=== PATIENT | male | born 1985 | race Caucasian/White ===

== ENCOUNTER → 2017-06-12 | Emergency (ER) | payer OTHER ==
[~2017-06-12] VITALS: Ht 182.8 cm; Wt 129.3 kg
== END ==
LOC: ED 20:17
DX: S61.511A Laceration without foreign body of right wrist, initial encounter (principal); S61.216A Laceration without foreign body of right little finger without damage to nail, initial encounter; W01.110A Fall on same level from slipping, tripping and stumbling with subsequent striking against sharp glass, initial encounter; Y93.89 Activity, other specified; Y92.89 Other specified places as the place of occurrence of the external cause; Y99.8 Other external cause status